=== PATIENT | male | born 1995 | race Caucasian/White ===

== ENCOUNTER 2016-08-15 15:10 | Emergency (ER) | payer MEDICAID ==
[2016-08-15 16:27] LABS: ABSOLUTE MONOCYTES (AUTO) 0.6 10^3/uL (0.1-1.4); BASOPHILS % (AUTO) 0.1 % (0-2); HEMATOCRIT 42.9 % (37.9-51.0); HEMOGLOBIN 14.8 g/dL (13.5-17.0); HGB HCT DIFFERENCE 1.5; LYMPHOCYTES % (AUTO) 8.9 % (13-45); MEAN CORPUSCULAR HEMOGLOBIN 30.1 pg (27.0-33.4); MEAN CORPUSCULAR HGB CONC 34.5 g/dL (32.0-36.0); MEAN CORPUSCULAR VOLUME 87 fl (80-97); MONOCYTES % (AUTO) 5.1 % (3-13); RED BLOOD COUNT 4.91 10^6/uL (4.35-5.55); RED CELL DISTRIBUTION WIDTH 12.3 % (11.5-14.0); SEGMENTED NEUTROPHILS % (AUTO) 85.9 % (42-78); WHITE BLOOD COUNT 11.6 10^3/uL (4.0-10.5)
[2016-08-15 16:38] LABS: PROTHROMBIN TIME 13.1 SEC (11.4-15.4)
[2016-08-15 16:44] LABS: ALANINE AMINOTRANSFERASE 34 U/L (21-72); ALBUMIN 3.7 g/dL (3.5-5.0); ALKALINE PHOSPHATASE 63 U/L (38-126); ANION GAP 14 (5-19); ASPARTATE AMINO TRANSFERASE 31 U/L (17-59); BILIRUBIN,TOTAL 0.4 mg/dL (0.2-1.3); BLOOD UREA NITROGEN 13 mg/dL (7-20); CALCIUM 9.3 mg/dL (8.4-10.2); CARBON DIOXIDE 27 mmol/L (22-30); CHLORIDE 100 mmol/L (98-107); CREATININE RESULT 0.66 mg/dL (0.52-1.25); GLUCOSE 91 mg/dL (75-110); POTASSIUM 4.1 mmol/L (3.6-5.0); SODIUM 140.9 mmol/L (137-145); TOTAL PROTEIN 6.6 g/dL (6.3-8.2)
[2016-08-15 16:45] LABS: ADD ON TESTING BLD IN LAB ACKNOWLEDGE
[2016-08-15 16:54] LABS: APPEARANCE,URINE CLOUDY; BILIRUBIN,URINE NEGATIVE (NEGATIVE); GLUCOSE, URINE NEGATIVE (NEGATIVE); KETONES,URINE NEGATIVE (NEGATIVE); LEUKOCYTE ESTERASE,URINE LARGE (NEGATIVE); NITRITE,URINE POSITIVE (NEGATIVE); PROTEIN,URINE 30 mg/dL (NEGATIVE); URINE SPECIFIC GRAVITY 1.018; UROBILINOGEN,URINE NEGATIVE mg/dL (<2.0)
[2016-08-15 17:00] LABS: CREATINE KINASE 236 U/L (55-170); MAGNESIUM 1.7 mg/dL (1.6-2.3)
[2016-08-15] MEDS ORDERED: DEXTROSE 5%-LACTATED RINGERS 1,000 ML IV ONE (17:25)
[2016-08-15] MEDS ORDERED: CEFTRIAXONE 1 GM/D5W RTU 50 ML IV ONE (17:25)
[2016-08-15 17:29] LABS: ADD ON TESTING BLD IN LAB ACKNOWLEDGE
--- NOTE | 2016-08-15 17:33 | ER Document Report ---
ED Fever - General Mode of Arrival: Medic Information source: Patient TRAVEL OUTSIDE OF THE [place] IN LAST 30 DAYS: No - HPI Patient complains to provider of: Fever Onset: This afternoon Associated symptoms: Other - see above <KODY RODRIGUEZ - Last Filed: 08/15/16 17:42> <JONATHAN SALES - Last Filed: 08/15/16 21:11> - General Chief Complaint: Fever Stated Complaint: FEVER Notes: 21 year old male with history of Bassem Syndrome (diagnosed at age 9), seizures , and dementia presents to the ED via EMS accompanied by his mother who complains the patient started developing a fever at 13:00 this afternoon. Mother states that she noticed the patient was flush to the face and warm to touch. The mother states that the last time this happened the patient's temperature lukas to 106F and she does not want that to happen today, so she called EMS. When EMS arrived the patient's temperature was 103 F. Mother gave the patient 300mg of Children's Tylenol and EMS gave the patient 975 mg of Tylenol. Mother states that the patient was eating normally until yesterday. Patient is still on Depakote for seizures. (KODY RODRIGUEZ) - Related Data Allergies/Adverse Reactions: No Known Allergies Allergy (Unverified 01/26/12 09:47) Past Medical History - General Information source: Parent, Emergency Med Personnel - Social History Smoking Status: Never Smoker Chew tobacco use (# tins/day): No Frequency of alcohol use: None Drug Abuse: None Family History: Reviewed & Not Pertinent Patient has suicidal ideation: No Patient has homicidal ideation: No Neurological Medical History: Reports: Hx Seizures Musculoskeltal Medical History: Reports Hx Muscle Weakness Surgical Hx: Negative - Immunizations Immunizations up to date: Yes Hx Diphtheria, Pertussis, Tetanus Vaccination: Yes <KODY RODRIGUEZ - Last Filed: 08/15/16 17:42> Review of Systems - Review of Systems Constitutional: See HPI, Fever EENT: No symptoms reported Cardiovascular: No symptoms reported Respiratory: No symptoms reported Gastrointestinal: See HPI, Poor appetite Genitourinary: No symptoms reported Male Genitourinary: No symptoms reported Musculoskeletal: No symptoms reported Skin: No symptoms reported Hematologic/Lymphatic: No symptoms reported Neurological/Psychological: No symptoms reported -: Yes All other systems reviewed and negative <KODY RODRIGUEZ - Last Filed: 08/15/16 17:42> Physical Exam - Vital signs Interpretation: Tachycardic - General General appearance: Alert In distress: None - HEENT Head: Normocephalic, Atraumatic 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 Extraocular movements intact: Yes - Respiratory Respiratory status: No respiratory distress Breath sounds: Normal - Cardiovascular Rhythm: Regular, Tachycardia Heart sounds: Normal auscultation Murmur: No - Abdominal Inspection: Normal - Back Back: Normal - Extremities General upper extremity: Normal inspection, Normal ROM General lower extremity: Normal inspection, Normal ROM - Neurological Neuro grossly intact: Yes - Patient is at baseline secondary to Bassem Syndrome - Psychological Associated symptoms: Normal affect, Normal mood - Skin Skin Temperature: Warm Skin Moisture: Dry Skin Color: Normal <KODY RODRIGUEZ - Last Filed: 08/15/16 17:42> <JONATHAN SALES - Last Filed: 08/15/16 21:11> - Vital signs Vitals: Temp Pulse Resp BP Pulse Ox 101.8 F H 92 15 143/112 H 95 08/15/16 15:26 08/15/16 15:26 08/15/16 15:26 08/15/16 15:26 08/15/16 15:26 (KODY RODRIGUEZ) (JONATHAN SALES) Course - Laboratory Result Diagrams: 08/15/16 16:05 08/15/16 16:05 <KODY RODRIGUEZ - Last Filed: 08/15/16 17:42> - Laboratory Result Diagrams: 08/15/16 16:05 08/15/16 16:05 <JONATHAN SALES - Last Filed: 08/15/16 21:11> - Vital Signs Vital signs: Temp Pulse Resp BP Pulse Ox 98.3 F 92 15 101/59 L 94 08/15/16 18:20 08/15/16 15:26 08/15/16 15:26 08/15/16 18:54 08/15/16 18:54 (KODY RODRIGUEZ) (JONATHAN SALES) - Laboratory Laboratory results interpreted by me: 08/15/16 08/15/16 08/15/16 16:05 16:05 16:05 WBC 11.6 H Plt Count 129 L Seg Neutrophils % 85.9 H Lymphocytes % 8.9 L Absolute Neutrophils 10.0 H Creatine Kinase 236 H Urine Protein 30 H Urine Blood SMALL H Urine Nitrite POSITIVE H Ur Leukocyte Esterase LARGE H Valproic Acid 08/15/16 16:05 WBC Plt Count Seg Neutrophils % Lymphocytes % Absolute Neutrophils Creatine Kinase Urine Protein Urine Blood Urine Nitrite Ur Leukocyte Esterase Valproic Acid 24.8 L (KODY RODRIGUEZ) (JONATHAN SALES) Discharge <KODY RODRIGUEZ - Last Filed: 08/15/16 17:42> <JONATHAN SALES - Last Filed: 08/15/16 21:11> - Discharge Clinical Impression: Bassem's disease, Subtherapeutic Depakote level Urinary tract infection Qualifiers: Urinary tract infection type: site unspecified Hematuria presence: with hematuria Qualified Code(s): N39.0 - Urinary tract infection, site not specified Fever Qualifiers: Fever type: unspecified Qualified Code(s): R50.9 - Fever, unspecified Condition: Stable Disposition: HOME, SELF-CARE Additional Instructions: Urinary Tract Infection: Your evaluation indicates that you have a urinary tract infection. This is due to germs growing in the bladder. This is a common problem. This infection usually responds quickly to antibiotics. Your antibiotic should be taken exactly as prescribed. Drink plenty of fluids -- three to four quarts a day. Occasionally, a bladder anesthetic will be prescribed to help stop the feeling of urgency until the antibiotic has a chance to clear the infection. This may cause your urine to be dark orange. Certain urine infections require a culture. If the doctor obtained a culture, the results will be back in two days. You should call to see if a change in treatment is needed. A repeat urinalysis after you finish treatment is often recommended. The physician will let you know if further testing is required. Call the doctor if you develop fever, chills, flank pain, inability to urinate, or blood in the urine. TAKE THE MEDICATION PRESCRIBED. GIVE TYLENOL EVERY FOUR HOURS FOR FEVER NEEDED. BE SURE TO TAKE ALL OF YOUR REGULAR MEDICATIONS. FOLLOW UP WITH DR. MARISCAL TOMORROW FOR RECHECK IF NOT IMPROVING. RETURN TO THE EMERGENCY ROOM IF ANY NEW OR WORSENING SYMPTOMS. Prescriptions: Sulfamethoxazole/Trimethoprim [Septra Susp 800-160 mg/20 ml Udcup] 20 ml PO BID #200 ml Referrals: DELANEY MARISCAL MD, [Primary Care Provider] - Follow up as needed Scribe Attestation: 08/15/16 21:11 I personally performed the services described in the documentation, reviewed and edited the documentation which was dictated to the scribe in my presence, and it accurately records my words and actions. (JONATHAN SALES) Scribe Documentation - Scribe Written by Scribe:: Sylvia English, 08/15/2016 17:46 acting as scribe for :: Marisel <KODY RODRIGUEZ - Last Filed: 08/15/16 17:42>
[2016-08-15 17:59] LABS: VALPROIC ACID 24.8 ug/mL (50.0-120.0)
[2016-08-15] MEDS ORDERED: DIVALPROEX SODIUM 250 MG TABLET.DR PO ONE (18:38)
[2016-08-15 18:56] VITALS: BP 101/59
[2016-08-15] MEDS ORDERED: VALPROATE SODIUM SYRUP 250 MG/5 ML UDCUP PO ONE (20:11)
[2016-08-15] MEDS ORDERED: SULFAMETHOXAZOLE/TRIMETHOPRIM 800-160 MG/20 ML UDCUP PO ONE (21:11)
[2016-08-15] MEDS ORDERED: VALPROATE SODIUM SYRUP 250 MG/5 ML UDCUP ONE (21:21)
[2016-08-15 21:26] LABS: VENOUS BLOOD BASE EXCESS 2.4 mmol/L; VENOUS BLOOD HCO3 27.9 mmol/L (20-32); VENOUS BLOOD PCO2 46.3 mmHg (35-63); VENOUS BLOOD PH 7.4 (7.30-7.42)
== END 2016-08-15 22:10 | disposition home or self-care (01) ==
LOC: ER 15:10
DX: N39.0 Urinary tract infection, site not specified (principal); R31.9 Hematuria, unspecified; R50.9 Fever, unspecified; R63.0 Anorexia; E75.4 Neuronal ceroid lipofuscinosis; Z79.899 Other long term (current) drug therapy; R00.0 Tachycardia, unspecified
CPT/HCPCS: 99284; 96365; 96368; 36415; 87040; 87086; 82550; 83735; 85025; 85610; 87088; 80053; 81001; 80164; 87186; 82803; 83605; 71010; J0696; J3490 ×2

== ENCOUNTER → 2016-08-30 | Outpatient (CLI) | payer MEDICAID | LOC: RAD 09:56 | PROVIDERS: ATTEND Pediatrics | DX: N39.0 Urinary tract infection, site not specified (principal) | CPT/HCPCS: 76770 ==

== ENCOUNTER 2016-12-25 13:39 | Emergency (ER) | payer MEDICAID ==
--- NOTE | 2016-12-25 13:46 | ER Document Report ---
ED Fever - General Chief Complaint: Fever Stated Complaint: FEVER Time Seen by Provider: 12/25/16 13:43 Notes: The patient is a 21-year-old male, past medical history Bassem's Disease, presents after he had a generalized witnessed seizure that lasted a few minutes and then agitation after, which is typical for him. However, his mom called EMS after he had a fever to 101. He was given 650 mg rectal Tylenol and 5 mg IV Versed by EMS prior to arrival. He is at baseline currently. Denies cough, AMS, rash, vomiting or diarrhea. TRAVEL OUTSIDE OF THE [place] IN LAST 30 DAYS: No - Related Data Allergies/Adverse Reactions: No Known Allergies Allergy (Unverified 01/26/12 09:47) Past Medical History - General Information source: Parent, Emergency Med Personnel - Social History Smoking Status: Never Smoker Family History: Reviewed & Not Pertinent Neurological Medical History: Reports: Hx Seizures Musculoskeltal Medical History: Reports Hx Muscle Weakness - Immunizations Immunizations up to date: Yes Hx Diphtheria, Pertussis, Tetanus Vaccination: Yes Review of Systems - Review of Systems -: Yes ROS unobtainable due to patient's medical condition Physical Exam - Vital signs Vitals: Temp Pulse Resp BP Pulse Ox 98.4 F 91 27 H 108/78 94 12/25/16 13:47 12/25/16 13:47 12/25/16 13:47 12/25/16 13:47 12/25/16 13:47 - Notes Notes: PHYSICAL EXAMINATION: GENERAL: In no acute distress. HEAD: Atraumatic, normocephalic. EYES: Pupils equal round and reactive to light, extraocular movements intact, sclera anicteric, conjunctiva are normal. ENT: nares patent, oropharynx clear without exudates. Moist mucous membranes. NECK: Normal range of motion, supple without lymphadenopathy LUNGS: Breath sounds clear to auscultation bilaterally and equal. No wheezes rales or rhonchi. HEART: Regular rate and rhythm without murmurs ABDOMEN: Soft, nontender, normoactive bowel sounds. No guarding, no rebound. No masses appreciated. EXTREMITIES: Chronic contractions of extremities. NEUROLOGICAL: At baseline, according to Grandma. SKIN: Warm, Dry, normal turgor, no rashes or lesions noted. Course - Re-evaluation Re-evalutation: Patient is back to baseline. Afebrile and has no signs of meningitis at this time. Urine and chest x-ray do not show any signs of infection and labs are unremarkable, other than elevated CPK. Patient received 3 L normal saline and instructed racheal to make sure that he just plenty of fluids. Offered admission for IV fluids, the racheal would like to take him home tonight. His kidney function is normal. Depakote level low and racheal said he will be given an additional dose of 500 mg Depakote tonight with his usual 500 mg nighttime Depakote. The patient has not missed any of his Depakote levels and is due for his next dose at 1900 tonight. Will send home with strict return precautions. - Vital Signs Vital signs: Temp Pulse Resp BP Pulse Ox 98.4 F 91 12 144/112 H 99 12/25/16 13:47 12/25/16 13:47 12/25/16 17:00 12/25/16 19:38 12/25/16 17:00 - Laboratory Result Diagrams: 12/25/16 17:31 12/25/16 17:31 Laboratory results interpreted by me: 12/25/16 12/25/16 12/25/16 14:24 17:31 17:31 Plt Count 126 L Creatine Kinase 4318 H Urine Ketones TRACE H Urine Urobilinogen 2.0 H Valproic Acid 12/25/16 17:31 Plt Count Creatine Kinase Urine Ketones Urine Urobilinogen Valproic Acid 21.2 L Discharge - Discharge Clinical Impression: Recurrent seizures Rhabdomyolysis Qualifiers: Rhabdomyolysis type: non-traumatic Qualified Code(s): M62.82 - Rhabdomyolysis Condition: Stable Disposition: HOME, SELF-CARE Additional Instructions: Follow-up with your seizure doctor to see if you need any medications adjusted. Try to make him drink plenty of water to help prevent his muscles breaking down. Seizure, Known Epileptic You have had a seizure. Seizures may "break through" in an epileptic due to stress of infection or injury, a change in blood chemistry, or drug and alcohol use. Another common cause is failure to take medication as prescribed. Your doctor has evaluated your situation for the likely cause of this seizure. It is important that you follow his advice concerning any medication changes and follow-up care. Further testing of anti-seizure medication levels in your blood may be necessary. If you have a drivers' cash clerk's license, it's important that you DO NOT DRIVE until given permission by your physician. This seizure must be reported to the drivers' cash clerk 's license bureau. Call the doctor or return if seizures recur, or if new or unusual symptoms arise -- such as severe headache, confusion, excessive sleepiness, local weakness or numbness, neck stiffness, or fever. Referrals: DELANEY MARISCAL MD [Primary Care Provider] - Follow up as needed
[2016-12-25 14:50] LABS: APPEARANCE,URINE SLIGHTLY-CLOUDY; BILIRUBIN,URINE NEGATIVE (NEGATIVE); GLUCOSE, URINE NEGATIVE (NEGATIVE); KETONES,URINE TRACE mg/dL (NEGATIVE); LEUKOCYTE ESTERASE,URINE NEGATIVE (NEGATIVE); NITRITE,URINE NEGATIVE (NEGATIVE); PROTEIN,URINE NEGATIVE (NEGATIVE); URINE SPECIFIC GRAVITY 1.026
[2016-12-25] MEDS ORDERED: LORAZEPAM INJ 2 MG/1 ML VIAL IV ONE ×2 (17:45→20:33)
[2016-12-25] MEDS ORDERED: LORAZEPAM INJ 2 MG/1 ML VIAL ONE (17:46)
[2016-12-25 18:02] LABS: ABSOLUTE LYMPHOCYTES (AUTO) 2.4 10^3/uL (0.5-4.7); ABSOLUTE MONOCYTES (AUTO) 0.7 10^3/uL (0.1-1.4); ABSOLUTE NEUT (AUTO) 5.3 10^3/uL (1.7-8.2); BASOPHILS % (AUTO) 0.3 % (0-2); EOSINOPHILS % (AUTO) 0.3 % (0-6); HEMATOCRIT 40.9 % (37.9-51.0); HEMOGLOBIN 13.9 g/dL (13.5-17.0); HGB HCT DIFFERENCE 0.8; LYMPHOCYTES % (AUTO) 28.4 % (13-45); MEAN CORPUSCULAR HEMOGLOBIN 30.3 pg (27.0-33.4); MEAN CORPUSCULAR HGB CONC 34.1 g/dL (32.0-36.0); MEAN CORPUSCULAR VOLUME 89 fl (80-97); RED CELL DISTRIBUTION WIDTH 12.5 % (11.5-14.0); WHITE BLOOD COUNT 8.4 10^3/uL (4.0-10.5)
[2016-12-25 18:04] LABS: ANION GAP 12 (5-19); BLOOD UREA NITROGEN 9 mg/dL (7-20); CALCIUM 9.3 mg/dL (8.4-10.2); CARBON DIOXIDE 22 mmol/L (22-30); CHLORIDE 106 mmol/L (98-107); CREATININE RESULT 0.54 mg/dL (0.52-1.25); GLUCOSE 88 mg/dL (75-110); POTASSIUM 4.3 mmol/L (3.6-5.0)
[2016-12-25] MEDS ORDERED: DIVALPROEX SODIUM 500 MG TAB.SR.24H PO ONE (18:14)
[2016-12-25 18:20] LABS: CREATINE KINASE 4318 U/L (55-170)
[2016-12-25] MEDS ORDERED: NORMAL SALINE 1000 ML 1,000 ML IV PRN (19:27)
[2016-12-25 22:20] VITALS: BP 112/97
== END 2016-12-25 22:20 | disposition home or self-care (01) ==
LOC: ER 13:39
DX: M62.82 Rhabdomyolysis (principal); R56.9 Unspecified convulsions; R50.9 Fever, unspecified
CPT/HCPCS: 96376; 99284; 96361; 51701; 96374; 36415; 82550; 85025; 80048; 81001; 80164; 71010; J2060; J7030